=== PATIENT | male | born 2000 | race Caucasian/White ===

== ENCOUNTER 2020-04-28 00:54 | Inpatient (IN) | payer OTHER ==
[~2020-04-28] VITALS: Ht 162.6 cm; Wt 58.7 kg
[2020-04-28 01:47] LABS: HEMATOCRIT 47.2 % (42.0-52.0); HEMOGLOBIN 15.8 g/dl (13.5-17.5); MEAN CORPUSCULAR HGB CONC 33.5 g/dl (32.0-36.5); MEAN CORPUSCULAR VOLUME 89.6 fl (80.0-96.0); PLATELET COUNT, AUTOMATED 287 10^3/uL (150-450); RED BLOOD COUNT 5.27 10^6/uL (4.30-6.10); WHITE BLOOD COUNT 6.3 10^3/uL (4.0-10.0)
[2020-04-28 02:13] LABS: AMPHETAMINES LEVEL URINE NEGATIVE (NEGATIVE); BARBITURATES URINE NEGATIVE (NEGATIVE); BENZODIAZEPINES URINE NEGATIVE (NEGATIVE); CANNABINOIDS URINE NEGATIVE (NEGATIVE); COCAINE METABOLITE URINE NEGATIVE (NEGATIVE); METHADONE URINE NEGATIVE (NEGATIVE); OPIATES URINE NEGATIVE (NEGATIVE); PHENCYCLIDINE URINE NEGATIVE (NEGATIVE)
[2020-04-28 02:20] LABS: ALBUMIN 4.5 GM/DL (3.2-5.2); ALT/SGPT 22 U/L (12-78); BILIRUBIN,DIRECT 0.1 MG/DL (0.0-0.2); BILIRUBIN,TOTAL 0.6 MG/DL (0.2-1.0); BLOOD UREA NITROGEN 13 MG/DL (7-18); CALCIUM LEVEL 9.1 MG/DL (8.5-10.1); CARBON DIOXIDE LEVEL 29 MEQ/L (21-32); CHLORIDE LEVEL 108 MEQ/L (98-107); CREATININE FOR GFR 1.17 MG/DL (0.70-1.30); ETHYL ALCOHOL (ETHANOL) 0.132 % (0.000-0.010); GLOMERULAR FILTRATION RATE > 60.0 (>60); GLUCOSE, FASTING 72 MG/DL (70-100); SALICYLATE LEVEL < 1.7 MG/DL (5.0-30.0); SODIUM LEVEL 145 MEQ/L (136-145); TOTAL PROTEIN 8.2 GM/DL (6.4-8.2)
[2020-04-28 02:21] LABS: ACETAMINOPHEN LEVEL < 2.0 UG/ML (10.0-30.0)
[2020-04-28] MEDS ORDERED: ACETAMINOPHEN TAB 650MG DOSE (2X325MG) PO PRN (04:45)
[2020-04-28] MEDS ORDERED: MOM 30ML SUSPENSION UDC PO PRN (04:45)
[2020-04-28] MEDS ORDERED: traZODone 50 MG TAB PO PRN (04:45)
[2020-04-28] MEDS ORDERED: MAALOX 30 ML SUSP *UDC PO PRN (04:45)
[2020-04-28] MEDS ORDERED: LORazepam 1 MG TAB PO PRN (04:45)
[2020-04-28 05:30] VITALS: BP 116/59
--- NOTE | 2020-04-28 13:27 | HPEPDOC ---
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 He has no acute medical complaints today without any report of fevers, chills, weakness, fatigue, BENTLEY, CP, SOB, cough, palpitations, abdominal pain, N/V/D or changes in bowel or b ladder habits. He reports some psychosocial strife at work that is driving his depression and suicidality at this time. In the ED, CBC, BMP and tox screen were wnl. 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 FAMHX: non contributory ROS: As noted in HPI, otherwise 11pt ROS of systems reviewed and unremarkable. Objective: Vitals: HDS, afebrile GEN: Appears stated age, well-nourished, well developed in no acute distress. HEENT: NCAT, PERRLA, EOMI, MMM CARDIAC: RRR, +S1, +S2 LUNGS: CTAB. Breathing comfortably on room air. ABD: Normoactive bowel sounds, soft, NTND EXT: Pulses 2+ bilaterally dorsalis pedis and radial. No lower extremity edema appreciated. SKIN: No rashes or lesions NEURO: Cranial nerves III-XII are intact. No focal deficits appreciated. PSYCH: Alert and oriented x 3. Labs: Reviewed Assessment: 20 yo M admitted to [facility] for depression and suicidal ideation. Depression with suicidal ideation: Plan per primary psych team Nicotine dependence. Patch prescribed Thank you for the consultation, internal medicine will sign off at this time. Vital Signs Vital Signs Date Time Temp Pulse Resp B/P (MAP) Pulse Ox O2 Delivery O2 Flow Rate FiO2 04/28/20 05:30 98.6 64 16 116/59 (78) 96 Room Air Laboratory Data Labs 24H Laboratory Tests 2 04/28/20 01:35: Nucleated Red Blood Cells % (auto) 0.0, Anion Gap 8, Glomerular Filtration Rate > 60.0, Calcium Level 9.1, Total Bilirubin 0.6, Direct Bilirubin 0.1, Aspartate Amino Transf (AST/SGOT) 17, Alanine Aminotransferase (ALT/SGPT) 22, Alkaline Phosphatase 112, Total Protein 8.2, Albumin 4.5, Albumin/Globulin Ratio 1.2, Thyroid Stimulating Hormone (TSH) 1.300, Salicylates Level < 1.7L, Urine Opiates Screen NEGATIVE, Urine Methadone Screen NEGATIVE, Acetaminophen Level < 2.0L, Urine Barbiturates Screen NEGATIVE, Urine Phencyclidine Screen NEGATIVE, Urine Amphetamines Screen NEGATIVE, Urine Benzodiazepines Screen NEGATIVE, Urine Cocaine Metabolite Screen NEGATIVE, Urine Cannabinoids Screen NEGATIVE, Ethyl Alcohol Level 0.132H CBC/BMP Laboratory Tests 04/28/20 01:35 Home Medications No Active Prescriptions or Reported Meds Allergies Coded Allergies: No Known Allergies (Unverified , 08/04/18) A-FIB/CHADSVASC A-FIB History Current/History of A-Fib/PAF?: No Current PO Anticoag Therapy: No Age/Risk Factor Scoring CHADSVASC: CHADSVASC Response (Comments) Value Age Risk Factor Age < 65 years old 0 Gender Risk Factor Male 0 Hx of CHF No 0 Hx of HTN No 0 Hx of Stroke/TIA/or VTE No 0 Hx of Diabetes No 0 Hx of Vascular Disease No 0 Total 0 Treatment Treatment ordered: NONE Reason Anticoagulant not given: Not indicated/[id number] BELINDA DONOVAN MD April 28, 2020 12:59
[2020-04-28 16:20] VITALS: BP 126/66
[2020-04-28] MEDS: NICOTINE 21MG/24HR 1 EA TRANSDERMAL TD PRN (20:49)
[2020-04-29 06:22] VITALS: BP 129/77
[2020-04-29] MEDS: NICOTINE 21MG/24HR 1 EA TRANSDERMAL TD PRN (08:57)
[2020-04-29 16:43] VITALS: BP 135/70
--- NOTE | 2020-04-29 20:44 | MHHPE ---
DATE OF ADMISSION: 04/28/2020 This is a telemedicine video assessment. It is being done because of the COVID-19 pandemic. Patient is aware of this. CHIEF COMPLAINT: Feels suicidal. 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 He has been depressed, with suicidal thoughts and had plans to cut his wrists. He does not offer much in terms of history, he is guarded, possibly disinterested, and suggests that he has been suicidal. The bulk of the history is obtained from the emergency room (ER) records. He apparently came into the ER, was brought in by [facility], as patient had expressed thoughts of suicide. He had enrolled into [facility] again, was due to have his first appointment in a few days. Says had been thinking of suicide, but does not offer much in terms of time frames. Also suggests that there are unreasonable expectations at work, but did not go into details. Plan was to cut himself with a knife. He was seen by the hospitalist, there were no major concerns expressed. Apparently, somebody had called his [facility], and also his cousin, and this was after patient had indicated in some respects that he wanted to . When he was seen by [facility], he was holding his combat knife to his arm. He admitted being unhappy with being in the , and he had been drinking every weekend, had had alcohol the night prior to coming here. Did not get much in terms of details related to his current distress, other than difficulties at work. When seen in the ER, he had apparently laughed when asked about thoughts of harming others. Suggests sleep has been broken, but did not go into details. Says feels depressed. He has had one prior hospitalization, this was here in 2018, was seen by Dr. Sethi, whose discharge summary is reviewed. Patient at that time had been feeling depressed and suicidal for about a month, had scratched his left wrist. According to that record, it was thought that the patient had been a victim of hazing that had been going on in the unit, but he had, at the time, been unwilling to make any comments regarding that. In the past, he has apparently been on medicine for attention deficit hyperactivity disorder. During his stay here, at the time, he was offered bupropion, but he declined. PAST PSYCHIATRIC HISTORY: As indicated above. For background history and background information, please refer to previous summary. He is active duty, has had one deployment as far as I can tell from the chart. Does not have any significant medical history as such. Not on any medications that I am aware of. SOCIAL HISTORY: He is active duty in the , has had one prior hospitalization here. Is having some difficulties with work, feels they are unreasonable. MENTAL STATUS EXAMINATION: Neat, guarded, at times appears somewhat disinterested as well. Answers questions briefly. No agitation, no psychomotor retardation. Affect is restricted in range. Suicidal thoughts, though somewhat vague on that, denies any firm plans. Unclear on any homicidal ideas or intents. No evidence of any psychosis. Cognition is thought to be grossly intact. No fluctuation of consciousness. Intellect average. Judgment and insight are quite questionable. VITAL SIGNS: Blood pressure 126/66, pulse 71, temperature 99.2. LABORATORY INVESTIGATIONS: Complete blood count within normal limits. Metabolic profile essential within normal limits except for a slight increase in chloride at 108. Urine toxicology is negative. ASSESSMENT: Other specified depressive disorder. Rule out major depressive disorder. Difficulties at work. He is clinically significantly depressed, though other details are not very clear. The possibility of posttraumatic stress also needs to be considered, given the history of hazing, and his being in the . PLAN: He is admitted to the inpatient psychiatry. He has been placed on relevant precautions. We will look at obtaining collateral information. He will receive a medicine consult, has been seen by the hospitalist. We will encourage him to engage in treatment, would suggest he consider using an antidepressant. He will be discharged with followup once he is stable. I would anticipate a 3-5 day stay. Further recommendations will be made depending on the clinical picture. The assessment took 30 minutes.
[2020-04-30 06:34] VITALS: BP 127/59
--- NOTE | 2020-04-30 10:04 | MHIPNPDOC ---
[facility] Progress Note Progress Note The patient was seen on 04/30/20. 20-year-old male is seen in follow-up today, he reports that he is interested in going to long-term treatment, he reports that he still has some depression "suicidal thoughts". The patient is been notably obstinate with various nurses and providers. The patient generally appears to have a history of characterological problems and has difficulty authority figures. Vital Signs Vital Signs Date Time Temp Pulse Resp B/P (MAP) Pulse Ox O2 Delivery O2 Flow Rate FiO2 04/30/20 06:34 98.3 66 14 127/59 (81) 97 Room Air Current Medications Current Medications Medications (Trade) Dose Ordered Sig/Dinora Route PRN Reason Start Time Stop Time Status Last Admin Dose Admin Acetaminophen (Tylenol Tab) 650 mg Q6HP PRN PO HEADACHE or DISCOMFORT 04/28/20 04:45 Al Hydrox/Mg Hydrox/Simethicone (Mylanta) 30 ml Q4HP PRN PO HEARTBURN/INDIGESTION 04/28/20 04:45 Home Med (Med Rec Complete!) ASDIRECTED XX 04/28/20 05:00 04/28/20 05:05 DC Lorazepam (Ativan) 1 mg Q12HP PRN PO ANXIETY/AGITATION 04/28/20 04:45 Magnesium Hydroxide (Milk Of Magnesia) 30 ml DAILYPRN PRN PO CONSTIPATION 04/28/20 04:45 Nicotine (Nicoderm Cq 21mg) 1 patch DAILY PRN TD Nicotine withdrawl 04/28/20 04:45 04/29/20 08:57 Trazodone HCl (Desyrel) 50 mg QHSP PRN PO INSOMNIA 04/28/20 04:45 Allergies Coded Allergies: No Known Allergies (Unverified , 08/04/18) Review of Systems Review of Systems General: Reports: ROS Unobtainable Pulmonary: Denies: Dyspnea, Cough Cardiovascular: Denies: Chest Pain Gastrointestinal: Denies: Nausea, Vomiting, Abdominal Pain Neurological: Denies: Weakness, Numbness Psych: Reports: Depression Mental Status Examination General Appearance: well groomed Build: average Demeanor: average Eye Contact: average Activity: average Behavior: resistant Mood: euthymic Mood "fine" Affect: full Thought Process: logical/linear Thought Content (Aggressive): none reported Perception (Other): none reported Cognition (Impairment of): none reported Cognition(Intelligence Est.): average Oriented: Awake, Alert Insight: poor Judgment: Poor Assessment 20-year-old man with likely history of characterological problems and potentially depression is seen in follow-up, he reports wind go to long-term care will investigate this more thoroughly with [facility]. Problem List Problems: (1) Adjustment disorder Status: Acute Response to Treatment: Improving Problem Specific Plan: Monitor Clinically Problem Text: Continue to monitor, patient uninterested in medications (2) Cluster B personality disorder Status: Chronic Response to Treatment: Stable Problem Specific Plan: Monitor Clinically Medications No Active Prescriptions or Reported Meds RE PENA DO Apr 30, 2020 10:04
[2020-04-30] MEDS: NICOTINE 21MG/24HR 1 EA TRANSDERMAL TD PRN (13:38)
--- NOTE | 2020-04-30 13:41 | MHIPN ---
DATE OF SERVICE: 04/29/2020 VITAL SIGNS: Blood pressure 135/70, pulse 57, temperature 97.3. CHIEF COMPLAINT: Says feels a bit better. SUBJECTIVE: Seen for followup. Indicates feels better and says has had hardly any sleep lately and had slept most of the day yesterday. [place] he was catching up. Feels rested today. Did sleep for a few hours at night. Woke up in the early hours of the morning. Somewhat less anxious. Says feels better and safer here. Suggests his main difficulty was being in the . He was due to get out, end of his contract coming October, but this has been postponed because of the COVID pandemic. He is now due to leave possibly next year in August. Says does think about his stressors at work, which are mostly work. MENTAL STATUS EXAMINATION: He is neat, somewhat less guarded. No agitation. No psychomotor retardation. Affect a bit broader than yesterday. Speech mostly spontaneous. Coherent. Vague on suicidal thoughts. No firm plans. No homicidal ideas or intents as such. No evidence of any psychosis. Cognition grossly intact. Judgment and insight thought to be somewhat improved. ASSESSMENT: Major depressive disorder, possibly recurrent. PLAN: He looks less anxious, somewhat less depressed, and is less guarded. I would suggest consider using an antidepressant. Says will give it thought. Meanwhile, we will look at attempting to engage him in treatment. Obtain collateral information, as well. He inquired about long-term care. We spoke about it; and given that this is his second hospitalization in a year and a half, may need to consider that; and depending on the intensity, that may be arranged while he is in inpatient unit here or upon discharge to [facility]. He is due to see them again in a couple of days. He will be seeing the assigned psychiatrist tomorrow. It should also be noted, has plans for education once he leaves the , most likely next year.
[2020-04-30 15:12] VITALS: BP 115/58
[2020-05-01 06:36] VITALS: BP 127/60
--- NOTE | 2020-05-01 09:21 | MHDSPDOC ---
[facility] Discharge Summary Discharge Summary DATE OF ADMISSION: April 28, 2020 at 04:45 DATE OF DISCHARGE: DISCHARGE DIAGNOSES: 1. . 2. . REASON FOR ADMISSION: CONSULTANTS INVOLVED: TREATMENT AND PROGRESS ON THE UNIT : . HOSPITAL COURSE: DISCHARGE ASSESSMENT: MENTAL STATUS EXAMINATION ON DISCHARGE: Patient is a -year old male, who is . Speech is . Language skills are . Thought processes including: . Thought content: . Abstract reasoning, and computation: . Description of associations: . Description of abnormal or psychotic thoughts: . Judgment: . Insight: . Orientation to . Recent and remote memory: . Attention span and concentration: . Language: . Fund of knowledge: . Mood: . Affect: . MEDICATIONS ON DISCHARGE: - for . - for . - for . PLAN/FOLLOWUP ARRANGEMENTS: . The amount of time spent in the coordination of care for this patient was approximately minutes. Vital Signs/I&Os Vital Signs Date Time Temp Pulse Resp B/P (MAP) Pulse Ox O2 Delivery O2 Flow Rate FiO2 05/01/20 06:36 97.9 51 14 127/60 (82) 98 Room Air Medications No Active Prescriptions or Reported Meds Allergies Coded Allergies: No Known Allergies (Unverified , 08/04/18) RE PENA 2, 2020 09:21
--- NOTE | 2020-05-01 10:11 | MHIPNPDOC ---
[facility] Progress Note Progress Note DATE OF SERVICE: 05/01/20 HISTORY: . VITAL SIGNS: See below. NEW TEST RESULTS: . CURRENT MEDICATIONS: See below. MENTAL STATUS EXAMINATION: Patient is a -year old male, who is . Speech: Is . Language skills are . Thought processes including: . Thought content: . Abstract reasoning, and computation: . Description of associa tions: . Description of abnormal or psychotic thoughts: . Judgment: . Insight: [very limited, good, fair. poor]. Orientation: . Recent and remote memory: . Attention span and concentration: . Language: . Fund of knowledge: . Mood: . Affect: . DIAGNOSES: 1. . 2. . 3. . ASSESSMENT: MANAGEMENT PLAN: . TIME SPENT: minutes. Vital Signs Vital Signs Date Time Temp Pulse Resp B/P (MAP) Pulse Ox O2 Delivery O2 Flow Rate FiO2 05/01/20 06:36 97.9 51 14 127/60 (82) 98 Room Air Current Medications Current Medications Medications (Trade) Dose Ordered Sig/Dinora Route PRN Reason Start Time Stop Time Status Last Admin Dose Admin Acetaminophen (Tylenol Tab) 650 mg Q6HP PRN PO HEADACHE or DISCOMFORT 04/28/20 04:45 Al Hydrox/Mg Hydrox/Simethicone (Mylanta) 30 ml Q4HP PRN PO HEARTBURN/INDIGESTION 04/28/20 04:45 Home Med (Med Rec Complete!) ASDIRECTED XX 04/28/20 05:00 04/28/20 05:05 DC Lorazepam (Ativan) 1 mg Q12HP PRN PO ANXIETY/AGITATION 04/28/20 04:45 Magnesium Hydroxide (Milk Of Magnesia) 30 ml DAILYPRN PRN PO CONSTIPATION 04/28/20 04:45 Nicotine (Nicoderm Cq 21mg) 1 patch DAILY PRN TD Nicotine withdrawl 04/28/20 04:45 04/30/20 13:38 Trazodone HCl (Desyrel) 50 mg QHSP PRN PO INSOMNIA 04/28/20 04:45 Allergies Coded Allergies: No Known Allergies (Unverified , 08/04/18) RE PENA DO May 01, 2020 10:11
--- NOTE | 2020-05-01 10:16 | MHDSPDOC ---
[facility] Discharge Summary Discharge Summary DATE OF ADMISSION: April 28, 2020 at 04:45 DATE OF DISCHARGE: May 01, 2020 at 12:54 DISCHARGE DIAGNOSES: 1. Unspecified depressive disorder. 2. Characterological disorder, unspecified 3. Concern for malingering. REASON FOR ADMISSION: 20-year-old man is brought in after reportedly making concerning statements her chain of command CONSULTANTS INVOLVED: none TREATMENT AND PROGRESS ON THE UNIT :. The patient was admitted to inpatient mental health unit and subsequently observe, he was uninterested any medications. He generally appeared 1st upset about being admitted but then became much more focused on staying. He had wanted to go to long-term, however [facility] had declined this is a felt was inappropriate. The patient was upset and then requested discharge at the time. He had been denying any suicidal or homicidal ideation for quite some time and had been in behavioral control. He generally appeared to be dismissive and it appears he has quite the characterological problems. 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 They decline voluntary extension/admission at this time and must be discharged in good frantz, as Im unable to make a case for holding the patient against their will. They may have historical risk factors of admissions and other interactions with psychiatry however, those are not modifiable from a clinical perspective. The patient will need to be discharged in good frantz. MENTAL STATUS EXAMINATION ON DISCHARGE: General: Well dressed with good hygiene Speech: Spontaneous and fluid Thought processes: Linear and logical Thought content: Future orientated Abstract reasoning, and computation: Intact Description of associations: Intact Description of abnormal or psychotic thoughts:Denies any suicidal or homicidal ideation. Denies any auditory or visual hallucinations. Does not appear to be responding to internal stimuli. Does not appear to be endorsing any bizarre or paranoid ideation. Judgment: chronically limited Insight: chronically limited Orientation: Alert and orientated 3 Recent and remote memory: Intact Attention span and concentration: Intact Fund of knowledge: Adequate Mood: "okay" Affect: Euthymic with a full range PLAN/FOLLOWUP ARRANGEMENTS: [facility]. The amount of time spent in the coordination of care for this patient was approximately 45 minutes. Vital Signs/I&Os Vital Signs Date Time Temp Pulse Resp B/P (MAP) Pulse Ox O2 Delivery O2 Flow Rate FiO2 05/01/20 06:36 97.9 51 14 127/60 (82) 98 Room Air Medications Scheduled PRN Nicotine (Nicotine Patch) 21 Mg Patch.td24, 1 PATCH TD DAILY PRN for Nicotine withdrawl for 30 Days, #30 Allergies Coded Allergies: No Known Allergies (Unverified , 08/04/18) RE PENA DO May 01, 2020 10:16
[2020-05-01] MEDS ORDERED: NICO21PAT TD (10:17)
== END 2020-05-01 12:54 | disposition home or self-care (01) | DRG 881 ==
LOC: M ED 00:54 → M ED INP 04:45 → M PSY 05:11
PROVIDERS: ADMIT Psychiatry & Neurology Psychiatry; ATTEND Psychiatry & Neurology Addiction Medicine
DX: F32.9 Major depressive disorder, single episode, unspecified (principal); R45.851 Suicidal ideations; Z76.5 Malingerer [conscious simulation]; F60.9 Personality disorder, unspecified; F17.200 Nicotine dependence, unspecified, uncomplicated